=== PATIENT | male | born 1945 | race Caucasian/White ===

== ENCOUNTER 2017-05-27 08:51 | Day surgery (SDC) | payer MEDICARE ==
[~2017-05-27] VITALS: Ht 172.7 cm; Wt 95.2 kg
[~2017-05-27 08:51] MED LIST: ASPI325 PO; ASPI325EC PO; ATOR40TA PO; Bactrim Ds Tab1 EACH PO; CENTRUM SILVER1 EAC4 PO; CETI5 PO; CHLO25B PO; CLOP75 PO; CODGUAEL PO; HYDR10 PO; MEGARED PO; MOVE FREE JOIN1 EACH PO; NAPR500 PO; NASACORT10.8 ML; NEBI10 PO; PERI4 PO; PHENY100ER PO; TRIA55OI; [UNRECOGNIZED DRUG - OTHER] PO; [UNRECOGNIZED DRUG - OTHER] PO; [UNRECOGNIZED DRUG - REMARK] PO
[2017-05-27] MEDS ORDERED: PERINDOPRIL ERBU4 MG PO (15:52)
[2017-05-28 05:49] LABS: Hematocrit 40.1 % (37.0-53.0); Hemoglobin 12.9 g/dL (13.5-17.5); Mean Corpuscular HGB 27.1 pg (26.0-34.0); Mean Corpuscular HGB Conc 32.2 g/dL (31.5-36.5); Mean Corpuscular Volume 84 fL (80-100); Mean Platelet Volume 9.8 fL (9.1-12.4); Platelet Count 214 K/mm3 (150-400); RDW Coefficient Variation 13.2 % (11.7-14.2); RDW Standard Deviation 40.6 fL (35.1-46.3); Red Blood Cell Count 4.76 M/mm3 (4.30-5.90); White Blood Cell Count 7.98 K/mm3 (4.00-11.30)
[2017-05-28] MEDS ORDERED: OXYC5 PO (14:42)
== END 2017-05-28 15:30 | disposition home or self-care (01) ==
LOC: SURS 08:51 → ORSCMMR 08:51 → PRE IP 08:51 → ORSCMMR 08:52 → PRE IP 10:30 → EDSTATUS 10:30 → SURS 14:40 → ORSCMMR 05-28 15:30
PROVIDERS: Orthopaedic Surgery
PROC: 0SRD0J9 Replacement of Left Knee Joint with Synthetic Substitute, Cemented, Open Approach (ICD-10-PCS; principal; 2017-05-27 10:30)
DX: M17.12 Unilateral primary osteoarthritis, left knee (principal); E78.5 Hyperlipidemia, unspecified; I10 Essential (primary) hypertension; I25.10 Atherosclerotic heart disease of native coronary artery without angina pectoris; Z95.5 Presence of coronary angioplasty implant and graft; Z79.82 Long term (current) use of aspirin; Z79.899 Other long term (current) drug therapy; Z87.891 Personal history of nicotine dependence
CPT/HCPCS: 36415; 73560-LT; 85027; 86850; 86900; 86901; 88300; 97110; 97116; 97162; 97530; C1713; C1776; G8978; G8979; G8980; J0171; J0690; J0735; J1885; J2250; J2405; J2795; J3010; J7120